=== PATIENT | male | born 1965 | race Caucasian/White ===

== ENCOUNTER 2019-02-03 09:03 | Outpatient (CLI) | payer OTHER ==
[2014-04-24 14:19] VITALS: BP 152/86
[2019-02-03 09:25] LABS: BASOPHILS % 0.4 % (0.0-1.5); NEUTROPHILS # 6.3 # k/uL (1.4-7.7)
[2019-02-03 09:36] LABS: A1C 9.4 % (<5.7)
[2019-02-03 09:47] LABS: eGFR (Non-African) > 60
[2019-02-03 09:48] LABS: HDL 46 mg/dL (>40)
== END 2019-02-03 09:05 ==
LOC: LAB 09:03
PROVIDERS: ATTEND Nurse Practitioner Family
DX: E10.65 Type 1 diabetes mellitus with hyperglycemia (principal)
CPT/HCPCS: 36415; 80053; 80061; 82043; 83036; 85025